=== PATIENT | male | born 1980 | race Caucasian/White ===

== ENCOUNTER 2016-10-13 15:26 | Emergency (ER) | payer BC ==
[2016-10-13 15:46] VITALS: TEMP 97.7; BMI 22.7
[2016-10-13] MEDS ORDERED: SODIUM CHLORIDE 1,000 ML IV STA (17:04)
--- NOTE | 2016-10-13 17:04 | PDOC ---
History of Present Illness - History of Present Illness Initial Comments: 10/13/16 17:29 Patient is a 35 year old male with significant medical hx of asthma who is presenting to the ED with intermittent diarrhea and abdominal cramping for the past three weeks. Patient reports earlier this month having a stomach virus for two weeks with nausea, abdominal cramping, and diarrhea. He states that during that time he had a root canal procedure and took a ten day course of clindamycin. Patient reports that his symptoms resolved for one week and then returned four days ago. He has had 15 episodes of diarrhea in the past four days and complains of associated weight loss and loss of appetite. Patient took imodium prior to arriving to the ED and reports a decrease in his bowel movement frequency. Patient denies fever, chills, vomiting, or blood in stool. Denies family hx of crohns disease, ulcerative colitis, IBD, and IBS. Other medical hx: Patient reports he was diagnosed with occipital neuralgia at the beginning of this month. Allergies: penicillin, seafood <Whitney Baeza - Last Filed: 10/13/16 17:52> <Sepideh Griffin - Last Filed: 10/13/16 19:19> - General Chief Complaint: Pain Stated Complaint: ABD PAIN Time Seen by Provider: 10/13/16 16:46 Past History <Whitney Baeza - Last Filed: 10/13/16 17:52> - Past Medical History Asthma: Yes - Immunization History Td Vaccination: No (UNKNOWN ? 7 YRS) Immunization Up to Date: Yes - Psycho/Social/Smoking Cessation Hx Anxiety: No Suicidal Ideation: No Smoking Status: No Smoking History: Never smoked Number of Cigarettes Smoked Daily: 0 Hx Alcohol Use: No Drug/Substance Use Hx: No Substance Use Type: None <Sepideh Griffin - Last Filed: 10/13/16 19:19> - Past Medical History Allergies/Adverse Reactions: Allergies Allergy/AdvReac Type Severity Reaction Status Date / Time Penicillins Allergy Verified 10/13/16 15:46 Home Medications: Ambulatory Orders Albuterol Sulfate Inhaler - [Ventolin Hfa Inhaler -] 2 inh PO Q4H PRN 07/27/16 Review of Systems - Review of Systems Comments:: 10/13/16 17:30 CONSTITUTIONAL: Present: loss of appetite Absent: fever, chills, diaphoresis, generalized weakness, malaise HEENT: Absent: rhinorrhea, nasal congestion, throat pain, throat swelling, difficulty swallowing, mouth swelling, ear pain, eye pain, visual changes CARDIOVASCULAR: Absent: chest pain, syncope, palpitations, irregular heart rate, lightheadedness , peripheral edema RESPIRATORY: Absent: cough, shortness of breath, dyspnea with exertion, orthopnea, wheezing, stridor, hemoptysis GASTROINTESTINAL: Present: abdominal cramping, nausea, diarrhea Absent: abdominal distension, vomiting, constipation, melena, hematochezia GENITOURINARY: Absent: dysuria, frequency, urgency, hesitancy, hematuria, flank pain, genital pain MUSCULOSKELETAL: Absent: myalgia, arthralgia, joint swelling SKIN: Absent: rash, itching, pallor HEMATOLOGIC/IMMUNOLOGIC: Absent: easy bleeding, easy bruising, lymphadenopathy, frequent infections ENDOCRINE: Present: weight loss Absent: unexplained weight gain, heat intolerance, cold intolerance NEUROLOGIC: Absent: headache, focal weakness or paresthesia, dizziness, unsteady gait, seizure, mental status changes, bladder or bowel incontinence. PSYCHIATRIC: Absent: anxiety, depression, suicidal or homicidal ideation, hallucinations <Whitney Baeza - Last Filed: 10/13/16 17:52> *Physical Exam - Vital Signs Last Vital Signs Temp Pulse Resp BP Pulse Ox 97.7 F 103 H 20 147/97 99 10/13/16 15:43 10/13/16 15:43 10/13/16 15:43 10/13/16 15:43 10/13/16 15:43 - Physical Exam Comments: 10/13/16 17:32 GENERAL: Well developed, well nourished. Awake and alert. No acute distress. HEENT: Normocephalic, atraumatic. PERRLA, EOMI. No conjunctival pallor. Sclera are non- icteric. Dry mucous membranes. Oropharynx is clear. NECK: Supple. Full ROM. No JVD. Carotid pulses 2+ and symmetric, without bruits. No thyromegaly. No lymphadenopathy. CARDIOVASCULAR: Regular rate and rhythm. No murmurs, rubs, or gallops. Distal pulses are 2+ and symmetric. PULMONARY: No evidence of respiratory distress. Lungs clear to auscultation bilaterally. No wheezing, rales or rhonchi. ABDOMINAL: Soft. Non-tender. Non-distended. No rebound or guarding. Hyperactive bowel sounds. No organomegaly. MUSCULOSKELETAL: Normal range of motion at all joints. No bony deformities or tenderness. No CVA tenderness. EXTREMITIES: No cyanosis. No clubbing. No edema. No calf tenderness. SKIN: Warm and dry. Normal capillary refill. No rashes. No jaundice. NEUROLOGICAL: Alert, awake, appropriate. Cranial nerves 2-12 intact. Normal speech. Gait is normal without ataxia. PSYCHIATRIC: Cooperative. Good eye contact. Appropriate mood and affect. <Whitney Baeza - Last Filed: 10/13/16 17:52> - Vital Signs Last Vital Signs Temp Pulse Resp BP Pulse Ox 97.7 F 103 H 20 147/97 99 10/13/16 15:43 10/13/16 15:43 10/13/16 15:43 10/13/16 15:43 10/13/16 15:43 <Sepideh Griffin - Last Filed: 10/13/16 19:19> ED Treatment Course - LABORATORY CBC & Chemistry Diagram: 10/13/16 18:00 10/13/16 18:00 <Sepideh Griffin - Last Filed: 10/13/16 19:19> Medical Decision Making - Medical Decision Making 10/13/16 17:11 this 35 yo male finished a 10 day course of clindamycin for an infected tooth on Sep 29 and for the past 4 days has had multiple episodes of loose stools -he denies any bloody stools and he denies any fever or chills -his primary physician is at [facility] asthma allergies seafood,PCN he states he has had 20 bowel mvmts in the past 3 days -abd exam hyperactive bowel sounds,soft -pt appears w dry mucus membranes -included in differential clostridium difficile, colitis plan- c diff stool culture/cbc/comp/IV fluids 10/13/16 17:16 10/13/16 19:05 Family following this patient had taken Imodium earlier today and therefore wasn 't having that many stools today. -after being in the ER for 3 hours he did have a bowel movement and the cultures were sent for C. difficile toxin no Fever Urinalysis is negative CBC shows a WBC of 11, no bands, no shift Chemistries are within normal limits. BUN only 17. Potassium is normal at 4. LFTs are within normal limits. Glucose is normal at 91. <Sepideh Griffin - Last Filed: 10/13/16 19:19> *DC/Admit/Observation/Transfer - Attestations Scribe Attestion: 10/13/16 17:34 Documentation prepared by Whitney Baeza, acting as medical office supervisor for Sepideh Griffin MD. <Whitney Baeza - Last Filed: 10/13/16 17:52> <Sepideh Griffin - Last Filed: 10/13/16 19:19> Diagnosis at time of Disposition: Diarrhea Qualifiers: Diarrhea type: unspecified type Qualified Code(s): R19.7 - Diarrhea, unspecified - Discharge Dispostion Disposition: HOME Condition at time of disposition: Stable - Referrals Referrals: Fabiana Ramey MD [Staff Physician] - - Patient Instructions Printed Discharge Instructions: DI for Diarrhea and Traveler's Diarrhea -- Adult Additional Instructions: WE ARE AWAITING THE LAB RESULTS on the stool. It is being tested for C Diff. If it is positive, you will be notified because further treatment will be needed Follow up with your doctor If you develop a temperature above 100.4, develop severe abdominal pain or bloody stool- return to the emergency department
[2016-10-13 18:12] LABS: BASOPHIL 0.5 % (0-2.0); EOSINOPHIL 1.8 % (0-4.5); MCH 29.8 pg (25.7-33.7); MCHC 34.6 g/dl (32.0-35.9); MEAN CELL VOLUME 86.1 fl (80-96); MEAN PLT VOLUME 8.5 fl (7.5-11.1); NEUTROPHILS 76.5 % (42.8-82.8); PLATELET COUNT 165 K/MM3 (134-434); RDW 12.9 % (11.9-15.9); WHITE BLOOD COUNT 11.2 K/mm3 (4.0-10.0)
[2016-10-13 18:13] LABS: URINE APPEARANCE CLEAR; URINE BILIRUBIN NEGATIVE (NEGATIVE); URINE COLOR YELLOW; URINE GLUCOSE (UA) NEGATIVE (NEGATIVE); URINE KETONE NEGATIVE (NEGATIVE); URINE LEUK ESTERASE NEGATIVE (NEGATIVE); URINE NITRITE NEGATIVE (NEGATIVE); URINE PROTEIN NEGATIVE (NEGATIVE); URINE UROBILINOGEN NEGATIVE E.U./dl (0.2-1.0)
[2016-10-13 18:14] LABS: URINE BLOOD 1+ (NEGATIVE)
[2016-10-13 18:15] LABS: URINE HYALINE CAST 1 /lpf; URINE MUCUS FEW; URINE RBC 1 /hpf (0-3); URINE WBC 1 /hpf (3-5)
[2016-10-13 18:36] LABS: ALBUMIN 4.2 g/dl (3.4-5.0); ALK PHOS 73 U/L (45-117); ANION GAP 12 (8-16); BILIRUBIN,TOTAL 0.6 mg/dL (0.2-1.0); CALCIUM 9.3 mg/dL (8.5-10.1); CO2 23 mmol/L (21-32); CREATININE 0.9 mg/dL (0.7-1.3); GLUCOSE,RANDOM 91 mg/dL (74-106); SGPT/ALT 73 U/L (12-78); TOT PROT 7.3 g/dl (6.4-8.2)
[2016-10-13 18:45] LABS: SGOT/AST 36 U/L (15-37)
[2016-10-13 19:44] VITALS: BP 138/90; PULSE 92
== END 2016-10-13 19:44 | disposition home or self-care (01) ==
LOC: JER 15:26
PROC: 3E0337Z Introduction of Electrolytic and Water Balance Substance into Peripheral Vein, Percutaneous Approach (ICD-10-PCS; principal; 2016-10-13)
DX: R19.7 Diarrhea, unspecified (principal)
CPT/HCPCS: 36415; 80053; 81003; 81015; 83690; 85025; 87324; 87449; 99282-25

== ENCOUNTER 2016-10-31 13:29 | Emergency (ER) | payer BC ==
[2016-10-31 13:43] VITALS: BP 149/94; PULSE 105; TEMP 98.2; BMI 23.1
--- NOTE | 2016-10-31 14:01 | PDOC ---
History of Present Illness - General Chief Complaint: Diarrhea Stated Complaint: ABD PAIN, DIARRHEA Time Seen by Provider: 10/31/16 13:59 History Source: Patient Exam Limitations: No Limitations - History of Present Illness Travel History: No Initial Comments: 10/31/16 14:53 was recently completed course of Flagyl for a confirmed diagnosis of C. difficile diarrhea. had gastroenteritis over the holidays, recovered but then had a dental extraction done just following where he was placed on clindamycin 3 times a day for 10 days. Patient completed the course of clindamycin but had an acute onset of profuse watery and foul- smelling diarrhea. After the third day of more than 5-7 stools a day came to this emergency department and was evaluated, found to have C. difficile per stool sample and culture and placed on Flagyl for 10 days. Patient completed a Flagyl course in his diarrhea resolved has been concerned about significant weight loss with all of these episodes and has been using ensure and food supplement products, extra Gatorade, and lots of fluids. Patient states his diet hasn't been returned to his normal secondary to his mild anorexia which is why he's using food supplementation. had an onset of diarrhea 2 days ago that was not profuse, foul-smelling, or associated with cramping or fevers. Denies any bleeding from his bowels. No one else at home sick. Has no recent travel, and no recent tainted food known. Had a recurrence of his C. difficile and came for further evaluation. Timing/Duration: reports: changing over time, intermittent Quality: reports: mild, moderate Pain Radiation: reports: no radiation Activities at Onset: reports: none Alleviating Factors: improves with: None Past History - Travel Traveled outside of the country in the last 30 days: No Close contact w/someone who was outside of country & ill: No - Past Medical History Allergies/Adverse Reactions: Allergies Allergy/AdvReac Type Severity Reaction Status Date / Time Penicillins Allergy Verified 10/31/16 13:37 Home Medications: Ambulatory Orders Albuterol Sulfate Inhaler - [Ventolin Hfa Inhaler -] 2 inh PO Q4H PRN 07/27/16 Asthma: Yes GI Disorders: Yes (c diff) - Immunization History Td Vaccination: No (UNKNOWN ? 7 YRS) Immunization Up to Date: Yes - Psycho/Social/Smoking Cessation Hx Anxiety: No Suicidal Ideation: No Smoking Status: No Smoking History: Never smoked Have you smoked in the past 12 months: No Number of Cigarettes Smoked Daily: 0 Information on smoking cessation initiated: No Hx Alcohol Use: No Drug/Substance Use Hx: No Substance Use Type: None Abd/GI Specific PMHX - Complaint Specific PMHX Diverticulitis: No Gall Bladder Disease: No Review of Systems - Review of Systems Able to Perform ROS?: Yes Is the patient limited Hungarian proficient: Yes Constitutional: Yes: Symptoms Reported, See HPI, Malaise. No: Chills, Fever HEENTM: No: Symptoms Reported Respiratory: Yes: See HPI. No: Symptoms reported, Cough Cardiac (ROS): No: Symptoms Reported ABD/GI: Yes: Symptoms Reported, See HPI, Diarrhea. No: Constipated, Nausea, Poor Appetite, Poor Fluid Intake, Vomiting, Indigestion, Abdominal cramping, Tarry Stools : No: Symptoms Reported Musculoskeletal: No: Symptoms Reported Integumentary: No: Symptoms Reported Neurological: No: Symptoms reported All Other Systems: Reviewed and Negative *Physical Exam - Vital Signs Last Vital Signs Temp Pulse Resp BP Pulse Ox 98.2 F 105 H 20 149/94 97 10/31/16 13:39 10/31/16 13:39 10/31/16 13:39 10/31/16 13:39 10/31/16 13:39 - Physical Exam General Appearance: Yes: Nourished, Appropriately Dressed. No: Apparent Distress HEENT: positive: FEI, Normal ENT Inspection, TMs Normal, Pharynx Normal Neck: positive: Tender, Supple Respiratory/Chest: positive: Lungs Clear, Normal Breath Sounds Cardiovascular: positive: Regular Rate Gastrointestinal/Abdominal: positive: Normal Bowel Sounds, Soft. 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 difficile Medical Decision Making - Medical Decision Making 10/31/16 16:10 Patient notified that C. difficile has been found in his stool sample that he submitted today. States will see his circulation librarian at [facility] tomorrow and will come for preliminary Gram stain showing the toxin that's active. Understands different antibiotic may be prescribed but will wait till he sees circulation librarian tomorrow for their advice and treatment 10/31/16 16:12 *DC/Admit/Observation/Transfer Diagnosis at time of Disposition: Diarrhea Qualifiers: Diarrhea type: unspecified type Qualified Code(s): R19.7 - Diarrhea, unspecified - Discharge Dispostion Disposition: HOME Condition at time of disposition: Stable Admit: No - Referrals Referrals: Felice Gonzalez MD [Primary Care Provider] - - Patient Instructions Printed Discharge Instructions: Traveler's Diarrhea Additional Instructions: Rest, drink lots of fluids: Teas, water, soups Ariadna linda, carbonated beverages for the bubbles May try peppermint teas Avoid heavy , spicy or fatty foods until symptoms have resolved Avoid contact with others until fevers and symptoms resolved Lots of handwashing and good hygiene Collect stool sample and submit to Gastroenterology at [facility] for evaluation and further treatment Continue [id number] medications for symptomatic relief Tylenol or Motrin for fever and pain Followup with private physician in one to 2 days as needed Return to emergency department for worsened symptoms, fevers, dehydration - Post Discharge Activity Work/School Note: Back to Work
== END 2016-10-31 15:24 | disposition home or self-care (01) ==
LOC: JERFT 13:29
DX: A04.7 Enterocolitis due to Clostridium difficile (principal)
CPT/HCPCS: 87045; 87046; 87324; 87449; 99281-25

== ENCOUNTER 2016-11-23 14:29 | Emergency (ER) | payer BC ==
[2016-11-23 14:36] VITALS: BP 136/86; PULSE 90; TEMP 97.9; BMI 22.8
--- NOTE | 2016-11-23 15:12 | PDOC ---
History of Present Illness - General Chief Complaint: Pain, Acute Stated Complaint: ABDOMINAL PAIN Time Seen by Provider: 11/23/16 14:46 History Source: Patient - History of Present Illness Timing/Duration: reports: intermittent Past History - Past Medical History Allergies/Adverse Reactions: Allergies Allergy/AdvReac Type Severity Reaction Status Date / Time Penicillins Allergy Verified 10/31/16 13:37 Home Medications: Ambulatory Orders Albuterol Sulfate Inhaler - [Ventolin Hfa Inhaler -] 2 inh PO Q4H PRN 07/27/16 Asthma: Yes GI Disorders: Yes (c diff) - Immunization History Td Vaccination: No (UNKNOWN ? 7 YRS) Immunization Up to Date: Yes - Psycho/Social/Smoking Cessation Hx Anxiety: No Suicidal Ideation: No Smoking Status: No Smoking History: Never smoked Have you smoked in the past 12 months: Yes Number of Cigarettes Smoked Daily: 0 Information on smoking cessation initiated: No Hx Alcohol Use: No Drug/Substance Use Hx: No Substance Use Type: None Abd/GI Specific PMHX - Complaint Specific PMHX Diverticulitis: No Gall Bladder Disease: No Review of Systems - Review of Systems Constitutional: No: Chills, Fever, Malaise ABD/GI: No: Constipated, Diarrhea, Nausea, Rectal Bleeding, Vomiting, Tarry Stools : No: Dysuria, Flank Pain, Hematuria, Testicular Mass, Testicular Swelling, Testicular Pain *Physical Exam - Vital Signs Last Vital Signs Temp Pulse Resp BP Pulse Ox 97.9 F 90 20 136/86 100 11/23/16 14:34 11/23/16 14:34 11/23/16 14:34 11/23/16 14:34 11/23/16 14:34 - Physical Exam General Appearance: Yes: Appropriately Dressed. No: Apparent Distress HEENT: positive: Normal Voice Neck: positive: Supple Respiratory/Chest: negative: Respiratory Distress Gastrointestinal/Abdominal: positive: Normal Bowel Sounds, Soft. negative: Tender, Distended, Guarding, Rebound Musculoskeletal: negative: CVA Tenderness Integumentary: positive: Dry, Warm Neurologic: positive: Fully Oriented, Alert, Normal Mood/Affect Medical Decision Making - Medical Decision Making 11/23/16 15:07 35 yo male, history of C. difficile after being taking clindamycin for dental infxn, completed vanco 1 week ago and states symptoms completely resolved but yesterday while lying down he felt "swelling" to RLQ that has been intermittent. Denies pain, n/v/f/c. States he wasn't sure if sxs were due to gas because he hadn't moved his bowel 2 days prior to swelling. Had BM today though that was normal as per pt. No brbpr or melena. Denies any sxs. Here to be evaluated. Pt well chemo and stable w/ benign abd, no ttp to mcburneys and no e/o hernia. Exam below threshold for work up in ED. Pt discharged with instructions to return to ER for worsening of symptoms. 11/23/16 15:13 *DC/Admit/Observation/Transfer Diagnosis at time of Disposition: Swelling abdomen - Discharge Dispostion Disposition: HOME Condition at time of disposition: Good - Patient Instructions Printed Discharge Instructions: DI for Abdominal Pain-Adult Additional Instructions: There was no findings on your exam to warrant blood work or CT at this time. If symptoms worsen, please return to the ER
== END 2016-11-23 15:14 | disposition home or self-care (01) ==
LOC: JERFT 14:29
DX: R19.03 Right lower quadrant abdominal swelling, mass and lump (principal); J45.909 Unspecified asthma, uncomplicated; Z87.19 Personal history of other diseases of the digestive system
CPT/HCPCS: 99281-25

== ENCOUNTER 2017-01-05 18:00 | Emergency (ER) | payer BC ==
[2017-01-05 18:07] VITALS: BMI 23.9
--- NOTE | 2017-01-05 18:09 | PDOC ---
History of Present Illness <Di Lowry - Last Filed: 01/05/17 19:07> <Sepideh Griffin - Last Filed: 01/05/17 20:38> - General Chief Complaint: Irregular Heart Beat Stated Complaint: PALPITATIONS/SORE THROAT/EAR PAIN Time Seen by Provider: 01/05/17 18:08 - History of Present Illness Initial Comments: 01/05/17 19:06 The patient is a 36 year old male with a past medical hx of asthma who presents to the ED complaining of palpitations for two days. He denies any chest pain. The patient reports he has been feeling short of breath recently too. The patient is also complaining of an intermittent sore throat and left ear pain for the past four days. He describes his sore throat as a burning sensation. The patient denies any fever, chills, nausea, vomiting, diarrhea, diaphoresis, lightheadedness. Surgical: None Allergies: Penicillin Social: Nonsmoker (Di Lowry) Past History <Di Lowry - Last Filed: 01/05/17 19:07> - Past Medical History Asthma: Yes GI Disorders: Yes (c diff) - Immunization History Td Vaccination: (UNKNOWN ? 7 YRS) Immunization Up to Date: Yes - Psycho/Social/Smoking Cessation Hx Anxiety: No Suicidal Ideation: No Smoking Status: No Smoking History: Never smoked Have you smoked in the past 12 months: Yes Number of Cigarettes Smoked Daily: 0 Hx Alcohol Use: No Drug/Substance Use Hx: No Substance Use Type: None <Sepideh Griffin - Last Filed: 01/05/17 20:38> - Past Medical History Allergies/Adverse Reactions: Allergies Allergy/AdvReac Type Severity Reaction Status Date / Time Penicillins Allergy Severe Rash, Verified 01/05/17 18:02 throat swelling Home Medications: Ambulatory Orders Albuterol Sulfate Inhaler - [Ventolin Hfa Inhaler -] 2 inh PO Q4H PRN 07/27/16 Review of Systems - Review of Systems Able to Perform ROS?: Yes <Di Lowry - Last Filed: 01/05/17 19:07> <Sepideh Griffin - Last Filed: 01/05/17 20:38> - Review of Systems Comments:: 01/05/17 19:06 CONSTITUTIONAL: Absent: fever, chills, diaphoresis, generalized weakness, malaise, loss of appetite HEENT: +Sore throat, left ear pain. Absent: rhinorrhea, nasal congestion, throat swelling, difficulty swallowing, mouth swelling, eye pain, visual changes CARDIOVASCULAR: +Palpitations. Absent: chest pain, syncope, irregular heart rate, lightheadedness, peripheral edema RESPIRATORY: Absent: cough, shortness of breath, dyspnea with exertion, orthopnea, wheezing, stridor, hemoptysis GASTROINTESTINAL: Absent: abdominal pain, abdominal distension, nausea, vomiting, diarrhea, constipation, melena, hematochezia GENITOURINARY: Absent: dysuria, frequency, urgency, hesitancy, hematuria, flank pain, genital pain MUSCULOSKELETAL: Absent: myalgia, arthralgia, joint swelling SKIN: Absent: rash, itching, pallor NEUROLOGIC: Absent: headache, focal weakness or paresthesias, dizziness, unsteady gait, seizure, mental status changes, bladder or bowel incontinence PSYCHIATRIC: Absent: anxiety, depression, suicidal or homicidal ideation, hallucinations. ( Di Lowry) *Physical Exam <Di Lowry - Last Filed: 01/05/17 19:07> <Sepideh Griffin - Last Filed: 01/05/17 20:38> - Vital Signs Last Vital Signs Temp Pulse Resp BP Pulse Ox 98.2 F 92 H 18 148/83 99 01/05/17 18:02 01/05/17 18:21 01/05/17 18:21 01/05/17 18:21 01/05/17 18:21 - Physical Exam Comments: 01/05/17 19:07 GENERAL: Well developed, well nourished. Awake and alert. No acute distress. HEENT: Normocephalic, atraumatic. PERRLA, EOMI. No conjunctival pallor. Sclera are non- icteric. Moist mucous membranes. Oropharynx is clear. NECK: Supple. Full ROM. No JVD. Carotid pulses 2+ and symmetric, without bruits. No thyromegaly. No lymphadenopathy. CARDIOVASCULAR: Regular rate and rhythm. No murmurs, rubs, or gallops. Distal pulses are 2+ and symmetric. PULMONARY: No evidence of respiratory distress. Lungs clear to auscultation bilaterally. No wheezing, rales or rhonchi. ABDOMINAL: Soft. Non-tender. Non-distended. No rebound or guarding. No organomegaly. Normoactive bowel sounds. MUSCULOSKELETAL Normal range of motion at all joints. No bony deformities or tenderness. No CVA tenderness. EXTREMITIES: No cyanosis. No clubbing. No edema. No calf tenderness. SKIN: Warm and dry. Normal capillary refill. No rashes. No jaundice. NEUROLOGICAL: Alert, awake, appropriate. Cranial nerves 2-12 intact. No deficits to light touch and temperature in face, upper extremities and lower extremities. PSYCHIATRIC: Cooperative. Good eye contact. Appropriate mood and affect. (Di Lowry) ED Treatment Course - LABORATORY CBC & Chemistry Diagram: 01/05/17 19:00 01/05/17 19:00 <Di Lowry - Last Filed: 01/05/17 19:07> - LABORATORY CBC & Chemistry Diagram: 01/05/17 19:00 01/05/17 19:00 <Sepideh Griffin - Last Filed: 01/05/17 20:38> - ADDITIONAL ORDERS Additional order review: Laboratory Results 01/05/17 01/05/17 01/05/17 19:30 19:00 19:00 INR Sodium Potassium Chloride Carbon Dioxide Anion Gap BUN Creatinine Creat Clearance w eGFR Random Glucose Calcium Magnesium Total Bilirubin AST ALT Alkaline Phosphatase Creatine Kinase Creatine Kinase Index CK-MB (CK-2) CK-MB (CK-2) Rel Index Cancelled Troponin I B-Natriuretic Peptide 12.61 Total Protein Albumin Urine Color Ltyellow Urine Appearance Clear Urine pH 5.0 Ur Specific Ophelia 1.024 Urine Protein Negative Urine Glucose (UA) Negative Urine Ketones Negative Urine Blood Negative Urine Nitrite Negative Urine Bilirubin Negative Urine Urobilinogen Negative Ur Leukocyte Esterase Negative 01/05/17 01/05/17 19:00 19:00 INR 1.05 Sodium 142 Potassium 3.6 Chloride 109 H Carbon Dioxide 24 Anion Gap 9 BUN 18 Creatinine 0.9 Creat Clearance w eGFR > 60 Random Glucose 101 Calcium 8.6 Magnesium 2.2 D Total Bilirubin 0.5 AST 31 ALT 57 D Alkaline Phosphatase 93 D Creatine Kinase 219 Creatine Kinase Index 1.5 CK-MB (CK-2) 3.310 CK-MB (CK-2) Rel Index Troponin I < 0.02 B-Natriuretic Peptide Total Protein 7.0 Albumin 4.0 Urine Color Urine Appearance Urine pH Ur Specific Ophelia Urine Protein Urine Glucose (UA) Urine Ketones Urine Blood Urine Nitrite Urine Bilirubin Urine Urobilinogen Ur Leukocyte Esterase 01/05/17 19:00 RBC 5.22 MCV 86.7 MCHC 34.8 RDW 12.9 MPV 7.8 Neutrophils % 56.1 D Lymphocytes % 31.7 D Monocytes % 7.8 Eosinophils % 3.8 D Basophils % 0.6 - RADIOLOGY Radiology Studies Ordered: Category Date Time Status CHEST PA & LAT [RAD] Stat Radiology 01/05/17 18:44 Taken - Medications Given in the ED: ED Medications Discontinued Medications Generic Name Dose Route Start Last Admin Trade Name Freq PRN Reason Stop Dose Admin Aspirin 162 mg 01/05/17 18:44 01/05/17 19:12 Asa - PO 01/05/17 18:45 162 mg ONCE ONE Administration *DC/Admit/Observation/Transfer <Di Lowry - Last Filed: 01/05/17 19:07> <Sepideh Griffin - Last Filed: 01/05/17 20:38> Diagnosis at time of Disposition: Palpitations, Elevated blood pressure reading - Discharge Dispostion Disposition: HOME Condition at time of disposition: Stable - Referrals Referrals: Felice Gonzalez MD [Primary Care Provider] - - Patient Instructions Printed Discharge Instructions: DI for Palpitations Additional Instructions: Please call your doctor at [facility] and make an appointment with him concerning your elevated blood pressure reading and please have an ECHO If you develop any chest pain of difficulty breathing, return to the emergency department - Attestations Scribe Attestion: 01/05/17 19:06 Documentation prepared by Di Lowry, acting as medical diagnostic radiographer for Sepideh Griffin MD/DO. (Di Lowry)
[2017-01-05] MEDS ORDERED: ASPIRIN 81 MG CHEWABLE TABLETS PO ONE (18:44)
[2017-01-05 19:08] LABS: BASOPHIL 0.6 % (0-2.0); EOSINOPHIL 3.8 % (0-4.5); MCH 30.2 pg (25.7-33.7); MCHC 34.8 g/dl (32.0-35.9); MEAN CELL VOLUME 86.7 fl (80-96); MEAN PLT VOLUME 7.8 fl (7.5-11.1); NEUTROPHILS 56.1 % (42.8-82.8); PLATELET COUNT 216 K/MM3 (134-434); RDW 12.9 % (11.9-15.9); WHITE BLOOD COUNT 6.2 K/mm3 (4.0-10.0)
[2017-01-05] MEDS ORDERED: ASPIRIN 81 MG CHEWABLE TABLETS ONE (19:10)
[2017-01-05 19:16] LABS: INR 1.05 (0.82-1.09); PROTHROMBIN TIME (PATIENT) 11.6 SEC (9.98-11.88)
[2017-01-05 19:25] LABS: ALK PHOS 93 U/L (45-117); ANION GAP 9 (8-16); BILIRUBIN,TOTAL 0.5 mg/dL (0.2-1.0); CALCIUM 8.6 mg/dL (8.5-10.1); CO2 24 mmol/L (21-32); COCKROFT - GAULT 115.15; CREATININE 0.9 mg/dL (0.7-1.3); GLUCOSE,RANDOM 101 mg/dL (74-106); MAGNESIUM 2.2 mg/dL (1.8-2.4); SGOT/AST 31 U/L (15-37); SGPT/ALT 57 U/L (12-78)
[2017-01-05 19:27] LABS: TROPONIN I < 0.02 ng/ml (0.00-0.05)
[2017-01-05 19:43] LABS: URINE APPEARANCE CLEAR; URINE BILIRUBIN NEGATIVE (NEGATIVE); URINE BLOOD NEGATIVE (NEGATIVE); URINE COLOR LTYELLOW; URINE GLUCOSE (UA) NEGATIVE (NEGATIVE); URINE KETONE NEGATIVE (NEGATIVE); URINE LEUK ESTERASE NEGATIVE (NEGATIVE); URINE NITRITE NEGATIVE (NEGATIVE); URINE PROTEIN NEGATIVE (NEGATIVE); URINE UROBILINOGEN NEGATIVE E.U./dl (0.2-1.0)
[2017-01-05 20:37] VITALS: BP 149/92; PULSE 89; TEMP 98.7
--- NOTE | 2017-01-06 11:07 | EKG ---
Test Reason : Blood Pressure : / mmHG Vent. Rate : 090 BPM Atrial Rate : 090 BPM P-R Int : 132 ms QRS Dur : 074 ms QT Int : 340 ms P-R-T Axes : 074 076 059 degrees QTc Int : 415 ms NORMAL SINUS RHYTHM POSSIBLE LEFT ATRIAL ENLARGEMENT BORDERLINE ECG NO PREVIOUS ECGS AVAILABLE Confirmed by ZITA SMALL MD ([id number]) on 01/06/2017 11:07:37 AM Referred By: Confirmed By:ZITA SMALL MD
== END 2017-01-05 20:42 | disposition home or self-care (01) ==
LOC: JER 18:00 → SUPCPDRO 18:00 → JER 20:42
DX: R03.0 Elevated blood-pressure reading, without diagnosis of hypertension (principal); R00.2 Palpitations
CPT/HCPCS: 36415; 71020-TC; 80053; 81003; 82550; 82553; 83735; 83880; 84484; 85025; 85610; 93005; 93010; 99285-25